=== PATIENT | female | born 1950 | race Caucasian/White ===

== ENCOUNTER 2024-08-14 12:41 | Emergency (ER) | payer MEDICARE, SELFPAY ==
[2024-08-14 12:46] VITALS: BP 110/51; PULSE 83; RESP 16; TEMP 36.1; O2SAT 98; BMI 27.4
--- NOTE | 2024-08-14 12:46 | ED_ITS ---
HPI - General Adult General Chief complaint: Psychiatric Symptoms Stated complaint: crisis Time Seen by Provider: 08/14/24 13:12 Source: patient and old records reviewed Mode of arrival: ambulatory Limitations: no limitations History of Present Illness ED Provider: ZENAIDA DÍAZ narrative: 73 yo female with PMH of CAD, DM, HLD, hypothyroidism here with c/o severe depression x 2 weeks waking up at night cannot calm herself down and has been panicking. She tried to see her new PCP and they would not prescribe anything. She notes she has no SI/HI but she needs a short med bridge to help her as she feels she is having a nervous breakdown. She states her friend 2 weeks ago and she is severely grieving her. No medical complaints or concerns. MD complaint: depression Onset (ago): week(s) (2) Severity: severe Relieving factors: none Exacerbating factors: other Associated symptoms: denies other symptoms Treatments prior to arrival: none Related Data Previous Rx's ?Medication ?Instructions ?Recorded lorazepam 0.5 mg tablet (Ativan) 0.5 mg PO BEDTIME PRN anxiety #7 08/14/24 tabs Allergies Allergy/AdvReac Type Severity Reaction Status Date / Time erythromycin base Allergy Unknown Verified 08/14/24 12:56 ketorolac [From Toradol] Allergy Unknown Verified 08/14/24 12:56 Penicillins [PCN] Allergy Rash Verified 08/14/24 12:50 sulfamethoxazole Allergy Unknown Verified 08/14/24 12:56 [From Bactrim] trimethoprim [From Bactrim] Allergy Unknown Verified 08/14/24 12:56 Review of Systems 2 Review of Systems: Constitutional : No Fever, No Chills ENT/Mouth : No Ear Pain, No Nasal Congestion, No sore throat Eyes: No Eye Pain, No Swelling, No Redness Cardiovascular : No Chest Pain, No SOB Respiratory : No Cough, No Sputum, No Dyspnea Gastrointestinal : No Nausea, No Vomiting, No Diarrhea, No Hematochezia, No Melena Genitourinary : No Dysuria, No Urinary Frequency, No Hematuria Musculoskeletal : No Myalgias Skin : No Skin Lesions, No rash Neuro : No Weakness, No Numbness, No Paresthesias, No Dizziness, No Headache Psych : positive Anxiety, positive Depression, no SI/HI All other systems reviewed and are negative [facility] Past Medical History Attestation statement: The following information was validated with the patient. Source: old records reviewed Medical History (Updated 08/14/24 @ 15:33 by Dionne Corado DO) Hypothyroidism CAD (coronary artery disease) Diabetes HLD (hyperlipidemia) Social History Social History (Updated 08/14/24 @ 13:47 by Dionne Corado DO) Patient Tobacco Use Status: Never used Tobacco Advance Directives: No Advance Directives Information Provided: Yes Physical Exam ED Vital Signs: Vital Signs - 24 hr 08/14/24 12:46 08/14/24 16:15 Temperature 96.9 F 96.9 F Pulse Rate 83 83 Respiratory Rate 16 16 Blood Pressure 110/51 L 110/51 L Pulse Oximetry 98 98 Oxygen Delivery Method Room Air Room Air BMI result Body Mass Index 27.4 Appearance: Alert. Oriented X3. No acute distress. Tearful Eyes: Pupils equal, round and reactive to light. ENT: Pharynx normal. Neck: Normal inspection. Neck supple. CVS: Normal heart rate and rhythm. Pulses normal. Respiratory: No respiratory distress. Breath sounds normal. Abdomen: Soft and nontender. Skin: Skin warm and dry. Normal skin color. Normal skin turgor. Extremities: No lower extremity edema. No calf ttp Neuro: Oriented X 3. No motor deficit. No sensory deficit. CN2-12 intact Course Course Course Narrative: RME, this is a rapid medical exam performed by Humphrey Ware please refer to primary provider for complete H&P- 73 year old female presents for evaluation of depression. She reports that she has been compliant with her medications. She denies suicidal ideation. Plan for medical clearance and care team evaluation Medical Decision Making Medical Decision Making [facility] Narrative: 73 yo female with PMH of CAD, DM, HLD, hypothyroidism here with c/o depression due to loss of friend at this time will obtain basic labs and refer to CARE team Differential Diagnosis Differential Diagnoses: The differential diagnosis associated with the presentation includes grief reaction, depression Admission/Observation Consideration of admission/observation: Escalation of care including admission/observation considered physician observation pending CARE team observation ended cleared by CARE team will start on short course ativan as I do not feel like abilify or remeron with her current antidepressants can be safely monitored, she can follow up with her PCP/provider Consult Healthcare Provider Management of the patient was discussed with: Behavioral Health Provider Lab Data [facility] Lab Attestation statement: I reviewed the patient's lab results. 08/14/24 14:30 08/14/24 14:30 Labs: Lab Results 08/14/24 Range/Units 14:30 WBC 7.4 (4.8-10.8) X10*3/uL RBC 3.81 L (4.20-5.50) X10*6/uL Hgb 10.7 L (12.0-16.0) g/dl Hct 33.5 L (37.0-47.0) % MCV 87.9 (80.0-98.0) fL MCH 28.1 (27.0-33.0) pg MCHC 31.9 (31.0-35.0) g/dl RDW 14.2 (11.0-16.0) % Plt Count 317 (160-400) X10*3/uL MPV 8.0 L (9.4-12.3) fL Immature Gran % (Auto) 0.4 (0.0-0.4) % Neut % (Auto) 71.4 (45-73) % Lymph % (Auto) 19.4 L (20-40) % [place] % (Auto) 8.1 (2-11) % Eos % (Auto) 0.3 (0-4) % Baso % (Auto) 0.4 (0-2) % Lymph # (Auto) 1.4 (1.2-4.9) X10*3/uL [place] # (Auto) 0.6 (0.1-1.2) X10*3/uL Eos # (Auto) 0.0 (0.0-0.4) X10*3/uL Baso # (Auto) 0.0 (0.0-0.2) X10*3/uL Abs Immat Gran (auto) 0.03 (0.00-0.03) X10*3/uL Absolute Neuts (auto) 5.3 (2.0-8.3) x10*3/uL Absolute Nucleated RBC 0.000 (0.0-0.012) X10*3/uL Nucleated RBC % (auto) 0.0 (0.0-0.2) /100WBC Sodium 140 (135-145) mmol/L Potassium 4.4 (3.3-5.1) mmol/L Chloride 106 (96-108) mmol/L Carbon Dioxide 25 (22-29) mmol/L Anion Gap 13 (12-20) BUN 25 H (9-16) mg/dL Creatinine 1.24 (0.5-1.4) mg/dL Estim Creat Clear Calc 38.2 Estimated GFR 42 Random Glucose 175 H (60-115) mg/dL Calcium 9.2 (8.4-10.2) mg/dL Total Bilirubin 0.2 (0.0-1.0) mg/dL AST 23 (5-31) U/L ALT 13 (0-31) U/L Alkaline Phosphatase 82 (39-117) U/L Total Protein 7.5 (6.5-8.0) g/dL Albumin 4.0 (3.5-5.0) g/dL Salicylates < 5.0 L (15-30) mg/dL Acetaminophen < 3 (<30) mcg/mL Ethyl Alcohol < 10 mg/dL External Record Review External record reviewed: Outpatient record Prescription Management I considered prescription management with: Other Discharge Plan Discharge Clinical Impression: Acute anxiety, Grief reaction Patient Disposition: Home, Self-Care Instructions: Mirtazapine (By mouth), Grief and Loss (ED), Anxiety (ED) Additional Instructions: you are on lamotrigine and venlafaxine - you are requesting a short term medication to help your symptoms but generally grief and loss cannot be treated by medications. We can start you on a medication you can take as needed at night for sleep but again this will not fix your overall feelings about this situation. Please follow up with your doctor Monitor for any confusion or worsening symptoms You were seen in our Emergency Department today for treatment of a behavioral health issue. It is important after your visit that you follow up with either your behavioral health provider or a primary care doctor within 7 days.? If you have trouble finding a therapist you can reach out to [address] [phone] The National Suicide and Crisis Lifeline can be reached 7 days a week 24 hours a day.? Call 988 to speak with someone.? Return for any worsening symptoms or concerns such as thoughts of self harm or harm to others. Please call 911 if you feel your mental health is worsening.? Prescriptions: New lorazepam [Ativan] 0.5 mg tablet 0.5 mg PO BEDTIME PRN (Reason: anxiety) Qty: 7 0RF Interventions: Gilbert-Suicide Risk Severity Scale Last Done: 08/14/24 16:17 ED Discharge Assessment Last Done: 08/14/24 16:15 Discharge Date/Time: 08/14/24 16:18 Print Language: Wolof
--- OUTSIDE RECORDS SUMMARY | 2024-08-14 14:19 | XMS_ITS | Clinical Summary ---
Author Organization [facility], Address [address] [place] [address] [place] [address] Phone Care Team Providers Care Bottle Selector Name Role Phone Liana Mcguire NP Primary Care Provider Allergies Active Allergy Reactions Criticality Noted Date Comments Erythromycin Other (see comments) 07/09/2017 Ketorolac Swelling 08/17/2005 tongue swelling Ketorolac Tromethamine Other (see comments) 06/08/2019 Nifedipine Other (see comments) 10/20/2012 Decrease platelet count Nitrofurantoin 10/01/2022 Omeprazole 10/01/2022 Penicillin G Rash,Swelling Low 08/17/2005 Penicillins Other (see comments) 06/08/2019 Sulfa Antibiotics Other (see comments) 07/09/2017 Sulfamethoxazole-Trimetho prim Other (see comments) 06/08/2019 Medications aspirin 81 MG chewable tablet Chew 1 tablet 1 (one) time each day Active cholecalcifero l (VITAMIN D-3) 1.25 MG (84032 UT) capsule Comments: Filled Date: May 05 2019 12:00AM Patient Notes: TAKE ONE CAPSULE BY MOUTH ONCE A WEEK Duration: 91 9 Active Continuous Blood Gluc Certified Juvenile Probation Officer (DEXCOM G6 CAPACITOR TESTER) device Comments: Filled Date: May 18 2019 12:00AM Patient Notes: USE DIRECTED Duration: 90 9 Active albuterol (5 MG/ML) 0.5% nebulizer solution 0.5 ml Active atorvastatin (LIPITOR) 80 MG tablet Comments: Filled Date: Jun 02 2019 12:00AM Patient Notes: TAKE ONE TABLET BY MOUTH EVERY DAY Duration: 30 9 Active carvedilol (COREG) 12.5 MG tablet weekly Active clopidogrel (PLAVIX) 75 MG tablet Comments: Filled Date: Apr 15 2019 12:00AM Patient Notes: TAKE ONE TABLET BY MOUTH EVERY DAY Duration: 90 9 Active insulin aspart (NovoLOG FLEXPEN) 100 UNIT/ML injection Comments: Filled Date: Apr 02 2019 12:00AM Patient Notes: INJECT UP TO 20 UNITS SUBCUTANEOUSLY THREE TIMES A DAY Duration: 30 8 Active insulin detemir (LEVEMIR FLEXTOUCH) 100 UNIT/ML injection Comments: Filled Date: May 15 2019 12:00AM Patient Notes: INJECT 30 UNITS SUBCUTANEOUSLY EVERY MORNING AND INJECT 40 UNITS EVERY EVENING Duration: 42 9 Active lisinopril (PRINIVIL,ZEST RIL) 5 MG tablet Comments: Filled Date: May 05 2019 12:00AM Patient Notes: TAKE ONE TABLET BY MOUTH EVERY DAY Duration: 90 9 Active LORazepam (ATIVAN) 1 MG tablet Comments: Filled Date: Mar 25 2019 12:00AM Patient Notes: TAKE 1 TABLET BY MOUTH THREE TIMES A DAY Duration: 30 9 Active venlafaxine (EFFEXOR) 37.5 MG tablet TAKE ONE CAPSULE(S) ONCE A DAY WITH FOOD Active Continuous Blood Gluc Sensor (Dexcom G6 Sensor) misc USE UTD CHANGE Q 10 DAYS 0 Active ezetimibe (ZETIA) 10 MG tablet 0 Active lamoTRIgine (LaMICtal) 100 MG tablet 0 Active levothyroxine (SYNTHROID, LEVOTHROID) 150 MCG tablet 0 Active Continuous Blood Gluc Transmit (Dexcom G6 Transmitter) misc 0 Active Active Problems Problem Noted Date Diagnosed Date 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 Chronic kidney disease stage 2 06/08/2019 Hyperlipidemia 06/20/2017 Overview (06/08/2019): Last Assessment & Plan: Continues on high intensity statin therapy LDL above goal on most recent labs, goal is <70 most recent result was 91, if value remains above goal then addition of Zetia may be warranted Acquired hypothyroidism 06/15/2017 Overview (06/08/2019): Last Assessment & Plan: Clinically euthyroid but reports occ palpitations Most recent TFTs reviewed and TSH is slightly suppressed, may benefit from modest lowering of L-thyroxine therapy, I took the liberty of contacting the patient to adjust this Immunizations Name Administration Dates Next Due Influenza Split High Dose Preservative Free IM 0 03/16/2019 Td, Unspecified 08/17/2005 Zoster 03/16/2019,01/02/2019 Social History Tobacco Use Types Packs/Day Years Used Date Smoking Tobacco: Former Tobacco Cessation:Counseling Given: No Alcohol Use Standard Drinks/Week Comments No 0 (1 standard drink = 0.6 oz pur e alcohol) Comments Unknown Sex and Gender Information Value Date Recorded Sex Assigned at Not on file Legal Sex Female 10:34 AM EST Gender Identity Not on file Sexual Orientation Not on file Last Filed Vital Signs Vital Sign Reading Time Taken Comments Blood Pressure 134/68 10/07/2023 2:08 PM EDT Pulse - - Temperature - - Respiratory Rate - - Oxygen Saturation - - Inhaled Oxygen Concentration - - Weight 89.8 kg (198 lb) 06/08/2019 7:36 PM EST Height - - Body Mass Index - - Plan of Treatment Upcoming Encounters Date Type Department Care Team (Late st Contact Info) Description 10/05/2024 2:00 PM EDT Office Visit [facility], [address] [place] [address] Kamran Kaplan MD [address] [place] [address] Health Maintenance Due Date Last Done Comments Breast Cancer Screening 1948 Colorectal Cancer Screening: Annual FOBT 1997 Colorectal Cancer Screening: Colonoscopy 1997 Colorectal Cancer Screening: Sigmoidoscopy 1997 Pneumococcal Vaccine: 65+ Years (3 of 3 - PCV) 04/14/2016 04/14/2015, 03/24/2014, 04/06/2008 Diabetes: Ophthalmology Exam 06/08/2019 Diabetes: Pedal Pulse Checked 06/08/2019 Diabetes: Sensory Foot Exam 06/08/2019 Diabetes: Visual Foot Exam 06/08/2019 Influenza Vaccine (#1) 2024 9, 04/22/2018, 05/12/2013 Diabetes: Hemoglobin A1C 06/08/2024 024, 08/23/2023, 07/09/2022, Additional history exists Hepatitis B Vaccine Aged Out No longe r eligible based on patient's age to complete this topic Insurance MEDICARE [facility] Care Teams Bottle Selector Relationship Specialty Start Date End Date Liana Mcguire NP [facility] [place] [facility] [address] [place] [address] PCP - General Nurse Practitioner 06/02/19
--- OUTSIDE RECORDS SUMMARY | 2024-08-14 14:19 | XMS_ITS | Clinical Summary ---
Author Organization [facility] [address] [facility] Address [address] [place] [address] Phone Care Team Providers Care [employer] Name Role Phone Mode Farr MD Primary Care Provider [phone] Allergies Active Allergy Reactions Criticality Noted Date Comments Erythromycin 08/17/2005 Other Reaction(s): Rash/Dermatitis Ketorolac Swelling 08/17/2005 tongue swelling Nifedipine 10/20/2012 Decrease platelet count Penicillin G Potassium Swelling 08/17/2005 Other Reaction(s): Rash/Dermatitis Sulfa (Sulfonamide Antibiotics) High 08/17/2005 Other Reaction(s): Rash/Dermatitis Medications ALBUTEROL INHL by Does not apply route as needed. Active aspirin 81 mg EC tablet Take 81 mg by mouth daily. Active atorvastatin (LIPITOR) 80 mg tablet Take 80 mg by mouth daily. Active carvediloL (COREG) 12.5 mg tablet Take 1 Tab by mouth 2 times daily (with meals). 05/07/2019 Active cholecalciferol (VITAMIN D-3) 25 mcg (1,000 unit) capsule Take 1 Cap by mouth daily. 03/01/2016 Active cloNIDine (XJRAKQMU-LTR-5 ) 0.1 mg/[address] 1 Patch onto the skin every 7 days. 05/07/2019 Active esomeprazole (NexIUM) [address] capsule Take 40 mg by mouth daily. Active insulin lispro (HumaLOG U-100 Insulin) 100 unit/mL injection 10-30 units @ mealtime Active insulin glargine (LANTUS) 100 unit/mL injection Inject into the skin at bedtime. 60 ux in am and 70 ux in pm Active lamoTRIgine (LaMICtal) 25 mg tablet Take 25 mg by mouth daily. Take one tablet daily Active levothyroxine (SYNTHROID, LEVOTHROID) 200 mcg tablet Take 200 mcg by mouth daily. 1 tablet daily 01/15/2012 Active LORazepam (ATIVAN) 1 mg tablet Take 1 mg by mouth 2 times daily. Active venlafaxine (EFFEXOR) 100 mg tablet Take 200 mg by mouth daily. Active Active Problems Problem Noted Date Diagnosed Date Idiopathic thrombocythemia 02/11/2013 Calculus of kidney 08/29/2010 CKD (chronic kidney disease) stage 2, GFR 60-89 ml/min 08/29/2010 Hypertensive kidney disease with chronic kidney disease, stage 1-4 or unspecified chronic kidney disease 08/29/2010 Hyperlipidemia 08/29/2010 Obesity 08/29/2010 Proteinuria 08/29/2010 Type 2 diabetes mellitus wit h renal manifestations, controlled 08/29/2010 Encounters Date Type Department Care Team Description 06/12/2024 Telephone Gastroenterology - [address] [facility] [address] [place] [address] Toni Salcido MA from Last 3 Months Immunizations Name Administration Dates Next Due PPD Test 02/27/2011,02/05/2011 Td Tetanus diptheria (Tdvax) 7yo and older 08/17 Medical History Medical History Date Comments Idiopathic thrombocythemia (CMS/HCC) 02/11/2013 DX:Idiopathic thrombocythemia (HCC) Family History Medical History Relation Name Comments Breast cancer Mother dx 40 Relation Name Status Comments Mother dx 40 Social History Tobacco Use Types Packs/Day Years Used Date Smoking Tobacco: Former Alcohol Use Standard Drinks/Week Comments Not Asked 0 (1 standard drink = 0.6 oz pur e alcohol) Comments Unknown Sex and Gender Information Value Date Recorded Sex Assigned at Not on file Legal Sex Female 2:24 AM EST Gender Identity Not on file Sexual Orientation Not on file Obstetrics History Plan of Treatment Upcoming Encounters Date Type Department Care Team ([facility] st Contact Info) Description 12/14/2024 7:30 AM EDT Appointment Radiology Department - [address] [address] Health Maintenance Due Date Last Done Comments Diabetes: Annual GFR (Glomerular Filtration Rate) 1948 COVID-19 Vaccine (#1) 1953 Diabetes: Annual Foot Exam 1958 Diabetes: Annual Retina Eye Exam 1958 Pneumococcal Vaccine: 50+ Years (1 of 2 - PCV) 1967 Zoster Vaccines (1 of 2) 1967 DTaP,Tdap,and Td Vaccines (2 - Td or Tdap) 08/17/2015 08/17/2005 Cholesterol Screening (Lipid Panel) 06/10/2022 Colorectal Cancer Screening: Colonoscopy 06/10/2022 Depression Screening 06/10/2022 Falls Risk Assessment 06/10/2022 Medicare Annual Wellness Visit 06/10/2022 Social Influencers of Health Screening 06/10/2022 Diabetes: Annual Urine Albumin-Creatinine Ratio (uACR) 06/15/2022 05/06/2019 Diabetes: Blood Sugar Control Test (HGBA1C) 06/15/2022 RSV Immunization Patients 60+ Years Old (1 - 1-dose 75+ series) 2023 Influenza Vaccine (#1) 2024 Osteoporosis Screening (Bone Density Screening) 11/09/2031 11/08/2021, 03/19/2017 Hepatitis C Screening Completed 02/20/2007 Breast Cancer Screening Discontinued 11/28/19, 11/28/2023, 11/16/2022, Additional history exists HIB Vaccines Aged Out No longer eligi ble based on patient's age to complete this topic HPV Vaccines Aged Out No longer eligi ble based on patient's age to complete this topic Hepatitis A Vaccines Aged Out No long er eligible based on patient's age to complete this topic Hepatitis B Vaccines Aged Out No long er eligible based on patient's age to complete this topic IPV Vaccines Aged Out No longer eligi ble based on patient's age to complete this topic MMR Vaccines Aged Out No longer eligi ble based on patient's age to complete this topic Meningococcal ACWY Vaccine Aged Out N o longer eligible based on patient's age to complete this topic Meningococcal B Vacine Aged Out No lo nger eligible based on patient's age to complete this topic RSV Immunization Patients Under 20 months Aged Out No longer eligible based on patient's age to complete this topic Varicella Vaccines Aged Out No longer eligible based on patient's age to complete this topic Procedures Procedure Name Priority Date/Time Associated Diagnosis Comments SCREENING MAMMOGRAPHY BI 2-VIEW BREAST INC CAD Routine 11/28/2023 8:02 AM EDT Encounter for screening mammogram for malignant neoplasm of breast DXA BONE DENSITY STUDY 1+ SITS AXIAL SKEL Routine 11/08/2021 4:04 PM EDT Encounter for screening for osteoporosis HM URINE ALBUMIN CREATININE RATIO Routine 05/06/2019 HEPATITIS C SCREENING Routine 02/20/2007 from Last 3 Months or Most Recently Relevant to Health Maintenance Results * SCREENING MAMMOGRAPHY BI 2-VIEW BREAST INC CAD (11/28/2023 8:02 AM EDT) Anatomical Region Laterality Modality Radiographic Rahel ging 11/16/2022 7:54 AM EDT Narrative 11/28/2023 12:44 PM EDT This is a summary report. The complete report is available in the patient's medical record. If you cannot access the medical record, please contact the sending organization for a detailed fax or copy. Study: SCREENING MAMMOGRAPHY BI 2-VIEW BREAST INC CAD Technique: Bilateral full-field digital screening mammography is obtained and read in conjunction with computer aided detection. ??Tomosynthesis as well as 2D C-View imaging were obtained. Comparison: Comparison made to multiple prior, most recent November 16, 2022, and most remote July 22, 2014. Breast composition: The breast tissue is heterogeneously dense, which may obscure small masses. Right breast: Large erica-like calcifications are not significantly changed from multiple prior studies as far back as 2014. ??No suspicious masses, suspicious calcifications or other abnormalities are seen. Left breast: Pacemaker battery limits local evaluation. ??Large erica-like calcifications are not significantly changed from multiple prior studies as far back as 2014. ??No suspicious masses, suspicious calcifications or other abnormalities are seen. IMPRESSION: Impression: Bilateral breasts: Benign, no specific mammographic evidence of malignancy. ??Normal interval follow-up is recommended in 12 months. BI-RADS: Category 2: Benign Procedure Note Lindsey Rogel MD - 02/17/2024 This is a summary report. The complete report is available in thepatient's medical record. If you cannot access the medical record, pleasecontact the sending organization for a detailed fax or copy. Study: SCREENING MAMMOGRAPHY BI 2-VIEW BREAST INC CAD Technique: Bilateral full-field digital screening mammography is obtainedand read in conjunction with computer aided detection. Tomosynthesis aswell as 2D C-View imaging were obtained. Comparison: Comparison made to multiple prior, most recent November 16, 2022,and most remote July 22, 2014. Breast composition: The breast tissue is heterogeneously dense, which mayobscure small masses. Right breast: Large erica-like calcifications are not significantly changedfrom multiple prior studies as far back as 2014. No suspicious masses,suspicious calcifications or other abnormalities are seen. Left breast: Pacemaker battery limits local evaluation. Large erica- likecalcifications are not significantly changed from multiple prior studiesas far back as 2014. No suspicious masses, suspicious calcifications orother abnormalities are seen. IMPRESSION: Impression: Bilateral breasts: Benign, no specific mammographic evidence ofmalignancy. Normal interval follow-up is recommended in 12 months. BI-RADS: Category 2: Benign Liaan Mcguire NP IMG XR PROCEDURES Final Resu lt * DXA BONE DENSITY STUDY 1+ SITS AXIAL SKEL (11/08/2021 4:04 PM EDT) Anatomical Region Laterality Modality Bone Densitometr y 10/19/2020 3:09 PM EDT Narrative 11/08/2021 5:48 PM EDT BONE DENSITY ? Lumbar Spine T-score is -0.3 ?? (SD relative to 20-29 y/o adult) Z-score is +2.0 ??(SD relative to age matched peers) This is normal by criteria defined by the WHO. Left Hip T-score is -1.6 Z-score is +0.4 This is normal by criteria defined by the WHO. Comparison exam(s): significant decrease in bone density of ??hip and lumbar spine when compared to most recent bone density examination ?? Confidence level is +/-95%. Impression: Based on the World Health Organization criteria, Cristiana Goyal should be classified as having osteopenia. This patient has a 16% risk of major osteoporotic fracture and a 2.8% risk of hip fracture over the next 10 years. (World Health Organization Fracture Risk Assessment) [facility] Department of Internal Medicine recommends using National Osteoporosis Foundation (NOF) guidelines in treatment decisions related to osteoporosis. NOF guidelines suggest considering treatment for postmenopausal women and men aged 50 or older presenting with the following: History of hip or vertebral fracture. T-score less than or equal to -2.5 (DXA) at the femoral neck, total hip, or spine, after appropriate evaluation to exclude secondary causes. Low bone mass (T-score between -1.0 and -2.5 at the femoral neck or spine) AND a 10-year probability of a hip fracture greater than or equal to 3% OR a 10-year probability of a major osteoporosis-related fracture greater than or equal to 20% based on the [place]-adapted WHO algorithm Please note that all treatment decisions require clinical judgment and consideration of individual patient factors, including patient preferences, co-morbidities, previous drug use, risk factors not captured in the FRAX model (e.g., frailty, falls, vitamin D deficiency, increased bone turnover, interval significant decline in bone density) and possible under- or over-estimation of fracture risk by FRAX. Procedure Note Astrid Chen MD - 06/19/2022 BONE DENSITY Lumbar Spine T-score is -0.3 (SD relative to 20-29 y/o adult) Z-score is +2.0 (SD relative to age matched peers) This is normal by criteria defined by the WHO. Left Hip T-score is -1.6 Z-score is +0.4 This is normal by criteria defined by the WHO. Comparison exam(s): significant decrease in bone density of hip andlumbar spine when compared to most recent bone density examination Confidence level is +/-95%. Impression: Based on the World Health Organization criteria, Cristiana Goyal should beclassified as having osteopenia. This patient has a 16% risk of majorosteoporotic fracture and a 2.8% risk of hip fracture over the next 10years. (World Health Organization Fracture Risk Assessment) [facility] Department of Internal Medicine recommendsusing National Osteoporosis Foundation (NOF) guidelines in treatmentdecisions related to osteoporosis. NOF guidelines suggest consideringtreatment for postmenopausal women and men aged 50 or older presentingwith the following: History of hip or vertebral fracture. T-score less than or equal to -2.5 (DXA) at the femoral neck, total hip,or spine, after appropriate evaluation to exclude secondary causes. Low bone mass (T-score between -1.0 and -2.5 at the femoral neck or spine)AND a 10-year probability of a hip fracture greater than or equal to 3% ORa 10-year probability of a major osteoporosis-related fracture greaterthan or equal to 20% based on the [place]-adapted WHO algorithm Please note that all treatment decisions require clinical judgment andconsideration of individual patient factors, including patientpreferences, co-morbidities, previous drug use, risk factors not capturedin the FRAX model (e.g., frailty, falls, vitamin D deficiency, increasedbone turnover, interval significant decline in bone density) and possibleunder- or over-estimation of fracture risk by FRAX. Liana Mcguire NP IMG DXA PROCEDURES Final Res ult * Urine Albumin Creatinine Ratio (05/06/2019) [facility] Urine Albumin Creatinine Ratio Abstracted Historical Provider HEALTH MAINTENANCE Final Result * Hepatitis C Screening (02/20/2007) [facility] Hepatitis C Screening Abstracted Historical Provider HEALTH MAINTENANCE Final Result from Last 3 Months or Most Recently Relevant to Health Maintenance Insurance MEDICARE [facility] Care Teams [employer] Relationship Specialty Start Date End Date Mode Farr MD [address] [place] [address] PCP - General Internal Medicine 09/03/12
--- OUTSIDE RECORDS SUMMARY | 2024-08-14 14:19 | XMS_ITS | Continuity of Care Document ---
Author Organization [facility] Adult Address [address] [place] [address]- Support Name Relationship Address Phone OWSHERINAK, JAYMIE Personal Relationship Unknown Unav ailable OWSIAK, JAYMIE Personal Relationship Unknown Unav ailable OWSIAK, JAYMIE Personal Relationship Unknown Unav ailable OWSIAK, JAYMIE spouse Unknown Unavailable OWSIAK, JAYMIE Personal Relationship Unknown Unav ailable OWSIAK, JAYMIE Personal Relationship Unknown Unav ailable OWSIAK, JAYMIE spouse Unknown Unavailable OWSIAK, JAYMIE Personal Relationship Unknown Unav ailable OWSIAK, JAYMIE Personal Relationship Unknown Unav ailable OWSIAK, JAYMIE Personal Relationship Unknown Unav ailable OWSIAK, JAYMIE Personal Relationship Unknown Unav ailable OWSIAK, JAYMIE Personal Relationship Unknown Unav ailable OWSIAK, JAYMIE spouse Unknown Unavailable OWSIAK, JAYMIE spouse Unknown Unavailable OWSIAK, JAYMIE Personal Relationship Unknown Unav ailable OWSIAK, JAYMIE Personal Relationship Unknown Unav ailable OWSIAK, JAYMIE Personal Relationship Unknown Unav ailable OWSIAK, JAYMIE Personal Relationship Unknown Unav ailable OWSIAK, JAYMIE Personal Relationship Unknown Unav ailable OWSIAK, JAYMIE Personal Relationship Unknown Unav ailable OWSIAK, JAYMIE Personal Relationship Unknown Unav ailable OWSIAK, JAYMIE Personal Relationship Unknown Unav ailable OWSIAK, JAYMIE Personal Relationship Unknown Unav ailable OWSIAK, JAYMIE spouse Unknown Unavailable OWSIAK, JAYMIE Personal Relationship Unknown Unav ailable OWSIAK, JAYMIE Personal Relationship Unknown Unav ailable OWSIAK SR, JAYMIE Personal Relationship Unknown U navailable OWSIAK, JAYMIE Personal Relationship Unknown Unav ailable OWSIAK, JAYMIE Personal Relationship Unknown Unav ailable OWSIAK, JAYMIE spouse Unknown Unavailable OWSIAK, JAYMIE Personal Relationship Unknown Unav ailable OWSIAK, JAYMIE Personal Relationship Unknown Unav ailable OWSIAK, JAYMIE spouse Unknown Unavailable OWSIAK, JAYMIE Personal Relationship Unknown Unav ailable OWSIAK, JAYMIE Personal Relationship Unknown Unav ailable OWSIAK, MAGDALENA child Unknown Unavailable OWSIAK, JAYMIE spouse Unknown Unavailable OWSIAK, JAYMIE Personal Relationship Unknown Unav ailable OWSIAK, JAYMIE Personal Relationship Unknown Unav ailable OWSIAK, FILIBERTO Personal Relationship Unknown Unav ailable OWSIAK, JAYMIE spouse Unknown Unavailable OWSIAK, JAYMIE spouse Unknown Unavailable OWSIAK, JAYMIE spouse Unknown Unavailable OWSIAK, JAYMIE E Personal Relationship Unknown Un available OWSIAK, JAYMIE Personal Relationship Unknown Unav ailable OWSIAK, JAYMIE Personal Relationship Unknown Unav ailable OWSIAK, JAYMIE Personal Relationship Unknown Unav ailable OWSIAK, JAYMIE spouse Unknown Unavailable OWSIAK, JAYMIE Personal Relationship Unknown Unav ailable OWSIAK, JAYMIE Personal Relationship Unknown Unav ailable OWSIAK, JAYMIE Personal Relationship Unknown Unav ailable OWSIAK, JAYMIE Personal Relationship Unknown Unav ailable OWSIAK, JAYMIE Personal Relationship Unknown Unav ailable OWSIAK, JAYMIE Personal Relationship Unknown Unav ailable OWSIAK, JAYMIE Personal Relationship Unknown Unav ailable OWSIAK, JAYMIE spouse Unknown Unavailable OWSIAK, JAYMIE Personal Relationship Unknown Unav ailable OWSIAK, JAYMIE Personal Relationship Unknown Unav ailable OWSIAK, JAYMIE Personal Relationship Unknown Unav ailable OWSIAK, JAYMIE Personal Relationship Unknown Unav ailable OWSIAK, JAYMIE Personal Relationship Unknown Unav ailable OWSIAK, JAYMIE Personal Relationship Unknown Unav ailable OWSIAK, JAYMIE Personal Relationship Unknown Unav ailable OWSIAK, JAYMIE Personal Relationship Unknown Unav ailable OWSIAK, JAYMIE Personal Relationship Unknown Unav ailable OWSIAK, JAYMIE spouse Unknown Unavailable OWSIAK, JAYMIE E Personal Relationship Unknown Un available OWSIAK, JAYMIE Personal Relationship Unknown Unav ailable OWSIAK, JAYMIE Personal Relationship Unknown Unav ailable OWSIAK, JAYMIE Personal Relationship Unknown Unav ailable OWSIAK, JAYMIE spouse Unknown Unavailable OWSIAK, JAYMIE Personal Relationship Unknown Unav ailable OWSIAK, JAYMIE Personal Relationship Unknown Unav ailable OWSIAK, JAYMIE Personal Relationship Unknown Unav ailable OWSIAK, JAYMIE spouse Unknown Unavailable FILIBERTO GOYAL L Personal Relationship Unknown Un available OWSIAK, FILIBERTO Personal Relationship Unknown Unav ailable OWSIAK, JAYMIE Personal Relationship Unknown Unav ailable Care Team Providers Care Early Childhood Special Educator Name Role Phone Pepper MANAGER BUSINESS BANKING, Vani Jeana Primary Care Physician Encounter [facility] ACCT R [id number] Date(s): 07/01/24 - 07/31/24 [facility] Adult [address] [place], [place] [address] Encounter Type: Triage Allergies, Adverse Reactions, Alerts Substance Criticality Severity Reaction Reaction Severity Status erythromycin rash Active NIFEdipine thrombocytopenia Ac tive Bactrim SOB rash Active penicillin anaphylaxis/rash Ac tive sulfa drugs anaphylaxis Active Toradol rash Active Theramycin rash Active Contrast Dye 1 Resol lore 1Patient states that she has tolerated Immunizations Given and Recorded Vaccine Date Status Refusal Reason influenza virus vaccine, inactivated 04/06/24 Amrit rded influenza virus vaccine, inactivated 04/11/23 Amrit rded influenza virus vaccine, inactivated 04/09/22 Amrit rded influenza virus vaccine, inactivated 03/27/21 Amrit rded influenza virus vaccine, inactivated 03/16/19 Amrit rded influenza virus vaccine, inactivated 1 04/22/18 Gi jennifer influenza virus vaccine, inactivated 2 08/08/16 Gi jennifer influenza virus vaccine, inactivated 3 04/14/15 Re corded influenza virus vaccine, inactivated 4 03/24/14 Re corded influenza virus vaccine, inactivated 05/12/13 Give n influenza virus vaccine, inactivated 03/31/09 Give n [id number] 12y+ bivalent booster vax 04/09/22 Recorded SARS-CoV-2 (COVID-19) mRNA BNT-162b2 vac 03/29/21 Recorded SARS-CoV-2 (COVID-19) mRNA BNT-162b2 vac 09/21/20 Recorded SARS-CoV-2 (COVID-19) mRNA BNT-162b2 vac 08/24/20 Recorded SARS-CoV-2 (COVID-19) mRNA BNT-162b2 vac 6 08/03/20 Recorded zoster vaccine, inactivated 03/16/19 Recorded zoster vaccine, inactivated 01/02/19 Recorded Pneumococcal Vaccine (oldterm) 7 04/14/15 Recorded pneumococcal 23-valent vaccine 8 03/24/14 Recorded pneumococcal 23-valent vaccine 04/06/08 Given tetanus/diphtheria/pertussis, acel(Tdap) 02/27/11 Given tetanus-diphtheria toxoids (Td) 08/06/08 Given tetanus-diphtheria toxoids (Td) 08/17/05 Recorded influ virus vac, H1N1, inactive(oldterm) 9 07/02/08 Given 1Result Comment: [04/23/2018] andministered at [facility] 2Admin Note: stop [employer] 3Location History: [facility] 4Location History: [facility] 5Result Comment: received at [facility] 6Result Comment: received at [facility] 7Location History: [facility] 8Location History: [facility] 9Admin Note: Given at work Medications albuterol 90 mcg/inh inhalation aerosol Inhalation, 2 times a day, PRN Wheezing/Shortness of Breath, 0 Refills, Maintenance Start Date: 05/04/19 Status: Ordered Repeat number: 1 allopurinol 100 mg oral tablet 1, tablet, By Mouth, Daily, # 90 tablet, Refills 1, Maintenance, 01/09/24 2:12:00 PM EDT, Route to Pharmacy Electronically, [facility], 159, cm, 12/30/23 13:35:00 EDT, Height, 69, kg, 12/16/23 12:29:00 EDT, Dry Weight Start Date: 01/09/24 Status: Ordered Quantity: 90.0 Unit: tablet Repeat number: 1 Aspir-Low 81 mg oral enteric coated tablet 1 tablet = 81 mg, By Mouth, Daily, # 30 tablet, 11 Refills, Maintenance, 08/30/15 4:19:37 PM EST, EC Tablet, [facility] Start Date: 08/30/15 Stop Date: 08/24/16 Status: Ordered Quantity: 30.0 Unit: tablet Repeat number: 12 atorvastatin 80 mg oral tablet 1 tablet, By Mouth, Daily, # 30 tablet, 11 Refills, Maintenance, 03/23/24 7:57:00 AM EDT, [facility], 159, cm, 02/05/24 8:19:00 EDT, Height, 69, kg, 12/16/23 12:29:00 EDT, Dry Weight Start Date: 03/23/24 Status: Ordered Quantity: 30.0 Unit: tablet Repeat number: 1 carvedilol 12.5 mg oral tablet 1, tablet, By Mouth, 2 times a day, # 180 tablet, Refills 1, Maintenance, 07/02/24 10:06:00 AM EST, Route to Pharmacy Electronically, [facility], 159, cm, 06/22/24 8:15:00 EST, Height, 69, kg, 12/16/23 12:29:00 EDT, Dry Weight Start Date: 07/02/24 Status: Ordered Quantity: 180.0 Unit: tablet Repeat number: 1 clopidogrel 75 mg oral tablet 1, tablet, By Mouth, Daily, # 90 tablet, Refills 1, Maintenance, 03/23/24 2:18:00 PM EDT, Route to Pharmacy Electronically, [facility], 159, cm, 02/05/24 8:19:00 EDT, Height, 69, kg,12/16/23 12:29:00 EDT, Dry Weight Start Date: 03/23/24 Status: Ordered Quantity: 90.0 Unit: tablet Repeat number: 1 ezetimibe 10 mg oral tablet 1 tablet, By Mouth, Daily, # 90 tablet, 3 Refills, Maintenance, 02/27/24 3:38:00 PM EDT, [facility], 159, cm, 02/05/24 8:19:00 EDT, Height, 69, kg, 12/16/23 12:29:00 EDT, Dry Weight Start Date: 02/27/24 Status: Ordered Quantity: 90.0 Unit: tablet Repeat number: 1 lamotrigine 100 mg oral tablet 1, tablet, By Mouth, 3 times a day, # 90 tablet, Refills 5, Tot. Refills 5, Maintenance, 07/21/24 9:26:00 PM EST, Route to Pharmacy Electronically, [facility], 159, cm, 06/22/24 8:15:00 EST, Height, 69, kg, 12/16/23 12:29:00 EDT, Dry Weight Start Date: 07/21/24 Status: Ordered Quantity: 90.0 Unit: tablet Repeat number: 6 Levemir Inj Subcutaneous Infusion, 2 times a day, s/s 30units up to 35 units, 0 Refills, Maintenance, 12/04/19 5:38:00 PM EDT Start Date: 12/04/19 Status: Ordered Repeat number: 1 levothyroxine 125 mcg (0.125 mg) oral tablet 1 tablet, By Mouth, Daily, # 90 tablet, 1 Refills, Maintenance, 05/15/24 4:12:00 PM EST, [facility], 159, cm, 05/05/24 15:38:00 EST, Height, 69, kg, 12/16/23 12:29:00 EDT, Dry Weight Start Date: 05/15/24 Status: Ordered Quantity: 90.0 Unit: tablet Repeat number: 1 predniSONE 10 mg oral tablet 0 Refills, Maintenance, 02/05/24 7:52:00 AM EDT, Partial fill upon patient request if the prescription is for a schedule II opioid drug. Start Date: 02/05/24 Status: Ordered Repeat number: 1 sacubitril-valsartan 97 mg-103 mg oral tablet 1 tablet, By Mouth, 2 times a day, # 180 tablet, 3 Refills, Maintenance, 02/04/24 11:02:00 AM EDT, Tablet, [facility], Partial fill upon patient request if the prescription is for a schedule II opioid drug., 1 tablet By Mouth 2 times a day, 159, cm, 02/04/24 10:50:00 EDT, Height, 69, kg, 12/16/23 12:29:00 EDT, Dry Weight Start Date: 02/04/24 Status: Ordered Quantity: 180.0 Unit: tablet Repeat number: 4 venlafaxine 225 mg oral tablet, extended release 1 tablet, By Mouth, Daily, # 90 tablet, 1 Refills, Maintenance, 02/04/24 2:50:00 PM EDT, [facility], 159, cm, 02/04/24 10:50:00 EDT, Height, 69, kg, 12/16/23 12:29:00 EDT, Dry Weight Start Date: 02/04/24 Status: Ordered Quantity: 90.0 Unit: tablet Repeat number: 1 Ventolin HFA 108 mcg/inh inhalation aerosol with adapter 1 puffs, Inhalation, 4 times a day, PRN for wheezing, refills by PCP, # 1 each, 0 Refills, Maintenance, 11/15/23 11:13:00 AM EDT, Aerosol, [facility], 157.5, cm, 11/15/23 8:57:00 EDT, Height, 78.7, kg, 05/29/22 6:48:00 EST, Dry Weight Start Date: 11/15/23 Stop Date: 12/15/23 Status: Ordered Quantity: 1.0 Unit: each Repeat number: 1 Problem List Condition Confirmation Course Effective Dates Status H ealth Status Informant Adjustment Disorder with Mixed Anxiety and Depressed Mood Confirmed Active ANXIETY STATE, UNSPECIFIED Confirmed Active Automatic implantable cardioverter-defibrill ator in situ Confirmed Active Benign hypertensive heart and kidney disease Confirmed Active 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 Pacemaker Confirmed Active Stage 3b chronic kidney disease (CKD) Confirmed Active Coronary arteriosclerosis 1, 2 Confirmed Active DEPRESSIVE DISORDER, NOT ELSEWHERE CLASSIFIED Confirmed Active 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 Confirmed Active ESOPHAGEAL REFLUX Confirmed Active Ischemic cardiomyopathy Confirmed Active Gout Confirmed Active Hypertension Confirmed Active Depression with anxiety Confirmed Active Nephritis and Nephropathy, Not Specified as Acute or Chronic, in Diseases Classified Elsewhere Confirmed Active Neuralgia, postherpetic Confirmed Active Obese class I Confirmed Active Obesity Confirmed Active OTHER AND UNSPECIFIED HYPERLIPIDEMIA Confirmed Active Post traumatic stress disorder (PTSD) Confirmed Active Major depression, recurrent, chronic Confirmed Active Renal hypertension Confirmed Active Retinopathy, diabetic NOS Confirmed Active UNSPECIFIED HYPOTHYROIDISM Confirmed Active UTI symptoms Confirmed Active 1ICD 08/2013 2DES x 2 Social History Social History Type Response Smoking Status Former smoker, quit more than 30 days ago; Tobacco user in household: No; Other: pt states she quit smoking at age 30; entered on: 08/05/19 Sex Sex Representation Female (finding) Patient Care team information Care Team Personnel Name: Vernell Lester RN Position: [facility] RN Supv Member Role: Primary Care Nurse Name: Fernanda Elias RN Position: S RN Member Role: Primary Care Nurse Name: Erika Waite RN Position: S RN Member Role: Primary Care Nurse Name: Vani Pabon NP Position: [facility] PCO Associate Professional Member Role: PCP Address: [address] [place] [address], [place] [address]- [place] Tele[employer]: Name: Sanjeev Miller RN Position: S RN Member Role: Primary Care Nurse Name: Anton SPENCER, Hina Campos Position: S RN Member Role: Primary Care Nurse Care Team Related Persons Name: MAGDALENA GOYAL Name: JAYMIE GOYAL Insurance Providers Guarantor name: FILIBERTO JYOTSNA Health Plan Information #: 1 Payer: MEDICARE PART B OUTPT Member Number: NA Policy Number: NA Group Number: NA Health Plan Information #: 2 Payer: BLUE MEDICARE SUPPL Member Number: NA Policy Number: NA Group Number: NA
--- OUTSIDE RECORDS SUMMARY | 2024-08-14 14:19 | XMS_ITS | Continuity of Care Document ---
Author Organization [facility] Adult Address [address] [place] [address]- Support Name Relationship Address Phone OWSHERINAK, JAYMIE [...] OWSIAK, JAYMIE Personal Relationship Unknown Unav ailable MARSIAK, JAYMIE spouse Unknown Unavailable FILIBERTO GOYAL L Personal Relationship Unknown Un available OWCHRIS, FILIBERTO Personal Relationship Unknown Unav ailable OWSIAK, JAYMIE Personal Relationship Unknown Unav ailable Care Team Providers Care Geothermal System Installer Name Role Phone Pepper STEPHEN, Vani Jeana Primary Care Physician [phone] [id number]28[facility] - 07/28/24 [facility] Adult [address] [place], [place] [address] Encounter Type: Triage Allergies, Adverse Reactions, Alerts [...] influenza virus vaccine, inactivated 03/31/09 Give n [id number] 12y+ bivalent booster vax 04/09/22 Recorded SARS-CoV-2 [...] 07/02/08 Given 1Result Comment: [04/23/2018] andministered at [facility] 2Admin Note: [facility] 3Location History: [facility] 4Location History: [employer] [facility] 5Result Comment: received at [facility] 6Result Comment: received at [facility] 7Location History: [facility] 8Location History: [facility] 9Admin Note: Given at work Medications albuterol 90 mcg/inh inhalation aerosol Inhalation, 2 times a day, PRN Wheezing/Shortness of Breath, 0 Refills, Maintenance Start Date: 05/04/19 Status: Ordered Repeat number: 1 allopurinol 100 mg oral tablet 1, tablet, By Mouth, Daily, # 90 tablet, Refills 1, Maintenance, 01/09/24 2:12:00 PM EDT, Route to Pharmacy Electronically, [facility], 159, cm, 12/30/23 13:35:00 EDT, Height, 69, kg, 12/16/23 12:29:00 EDT, Dry Weight Start Date: 01/09/24 Status: Ordered Quantity: 90.0 Unit: tablet Repeat number: 1 Aspir-Low 81 mg oral enteric coated tablet 1 tablet = 81 mg, By Mouth, Daily, # 30 tablet, 11 Refills, Maintenance, 08/30/15 4:19:37 PM EST, EC Tablet, [facility] Start Date: 08/30/15 Stop Date: 08/24/16 Status: Ordered Quantity: 30.0 Unit: tablet Repeat number: 12 atorvastatin 80 mg oral tablet 1 tablet, By Mouth, Daily, # 30 tablet, 11 Refills, Maintenance, 03/23/24 7:57:00 AM EDT, [facility], 159, cm, 02/05/24 8:19:00 EDT, Height, 69, kg, 12/16/23 12:29:00 EDT, Dry Weight Start Date: 03/23/24 Status: Ordered Quantity: 30.0 Unit: tablet Repeat number: 1 carvedilol 12.5 mg oral tablet 1, tablet, By Mouth, 2 times a day, # 180 tablet, Refills 1, Maintenance, 07/02/24 10:06:00 AM EST, Route to Pharmacy Electronically, [facility], 159, cm, 06/22/24 8:15:00 EST, Height, 69, kg, 12/16/23 12:29:00 EDT, Dry Weight Start Date: 07/02/24 Status: Ordered Quantity: 180.0 Unit: tablet Repeat number: 1 clopidogrel 75 mg oral tablet 1, tablet, By Mouth, Daily, # 90 tablet, Refills 1, Maintenance, 03/23/24 2:18:00 PM EDT, Route to Pharmacy Electronically, [facility], 159, cm, 02/05/24 8:19:00 EDT, Height, 69, kg,12/16/23 12:29:00 EDT, Dry Weight Start Date: 03/23/24 Status: Ordered Quantity: 90.0 Unit: tablet Repeat number: 1 ezetimibe 10 mg oral tablet 1 tablet, By Mouth, Daily, # 90 tablet, 3 Refills, Maintenance, 02/27/24 3:38:00 PM EDT, [facility], 159, cm, 02/05/24 8:19:00 EDT, Height, 69, kg, 12/16/23 12:29:00 EDT, Dry Weight Start Date: 02/27/24 Status: Ordered Quantity: 90.0 Unit: tablet Repeat number: 1 lamotrigine 100 mg oral tablet 1, tablet, By Mouth, 3 times a day, # 90 tablet, Refills 5, Tot. Refills 5, Maintenance, 07/21/24 9:26:00 PM EST, Route to Pharmacy Electronically, [facility], 159, cm, 06/22/24 8:15:00 EST, [...] Team Personnel Name: Vernell Lester RN Position: [facility] RN Supv Member Role: Primary Care Nurse Name: Fernanda Elias RN Position: S RN Member Role: Primary Care Nurse Name: Erika Waite RN Position: S RN Member Role: Primary Care Nurse Name: Vani Pabon NP Position: [facility] PCO Associate Professional Member Role: PCP Address: [address] [place] [address] [place] [address]- [place] Tele[employer]: Name: Sanjeev Miller RN Position: [...]
--- OUTSIDE RECORDS SUMMARY | 2024-08-14 14:19 | XMS_ITS | Continuity of Care Document ---
Author Organization [facility] Adult Address [address] [place] [address]- Support Name Relationship Address Phone OWSHERINAK, JAYMIE [...] GOYAL L Personal Relationship Unknown Un available OWSHERINAK, FILIBERTO Personal Relationship Unknown Unav ailable OWSIAK, JAYMIE Personal Relationship Unknown Unav ailable Care Team Providers Care Transit Authority Police Officer Name Role Phone Pepper STEPHEN, Vani Jeana Primary Care Physician Encounter [facility] ACCT R [id number] Date(s): 07/03/24 - 08/02/24 [facility] Adult [address] [place], [place] [address] Encounter Type: Triage Allergies, Adverse Reactions, [...] influenza virus vaccine, inactivated 03/31/09 Give n [id number] 12y+ bivalent booster vax 04/09/22 Recorded SARS-CoV-2 [...] 07/02/08 Given 1Result Comment: [04/23/2018] andministered at [facility] 2Admin Note: stop [employer] 3Location History: [facility] 4Location History: [facility] 5Result Comment: received at [facility] 6Result Comment: received at [facility] 7Location History: [facility] 8Location History: [facility] [employer] 9Admin Note: Given at work Medications albuterol 90 mcg/inh inhalation aerosol Inhalation, 2 times a day, PRN Wheezing/Shortness of Breath, 0 Refills, Maintenance Start Date: 05/04/19 Status: Ordered Repeat number: 1 allopurinol 100 mg oral tablet 1, tablet, By Mouth, Daily, # 90 tablet, Refills 1, Maintenance, 01/09/24 2:12:00 PM EDT, Route to Pharmacy Electronically, [facility], 159, cm, 12/30/23 13:35:00 EDT, Height, 69, kg, 12/16/23 12:29:00 EDT, Dry Weight Start Date: 01/09/24 Status: Ordered Quantity: 90.0 Unit: tablet Repeat number: 1 Aspir-Low 81 mg oral enteric coated tablet 1 tablet = 81 mg, By Mouth, Daily, # 30 tablet, 11 Refills, Maintenance, 08/30/15 4:19:37 PM EST, EC Tablet, [facility] Start Date: 08/30/15 Stop Date: 08/24/16 Status: Ordered Quantity: 30.0 Unit: tablet Repeat number: 12 atorvastatin 80 mg oral tablet 1 tablet, By Mouth, Daily, # 30 tablet, 11 Refills, Maintenance, 03/23/24 7:57:00 AM EDT, [facility], 159, cm, 02/05/24 8:19:00 EDT, Height, 69, kg, 12/16/23 12:29:00 EDT, Dry Weight Start Date: 03/23/24 Status: Ordered Quantity: 30.0 Unit: tablet Repeat number: 1 carvedilol 12.5 mg oral tablet 1, tablet, By Mouth, 2 times a day, # 180 tablet, Refills 1, Maintenance, 07/02/24 10:06:00 AM EST, Route to Pharmacy Electronically, [facility], 159, cm, 06/22/24 8:15:00 EST, Height, 69, kg, 12/16/23 12:29:00 EDT, Dry Weight Start Date: 07/02/24 Status: Ordered Quantity: 180.0 Unit: tablet Repeat number: 1 clopidogrel 75 mg oral tablet 1, tablet, By Mouth, Daily, # 90 tablet, Refills 1, Maintenance, 03/23/24 2:18:00 PM EDT, Route to Pharmacy Electronically, [facility], 159, cm, 02/05/24 8:19:00 EDT, Height, 69, kg,12/16/23 12:29:00 EDT, Dry Weight Start Date: 03/23/24 Status: Ordered Quantity: 90.0 Unit: tablet Repeat number: 1 ezetimibe 10 mg oral tablet 1 tablet, By Mouth, Daily, # 90 tablet, 3 Refills, Maintenance, 02/27/24 3:38:00 PM EDT, [facility], 159, cm, 02/05/24 8:19:00 EDT, Height, 69, kg, 12/16/23 12:29:00 EDT, Dry Weight Start Date: 02/27/24 Status: Ordered Quantity: 90.0 Unit: tablet Repeat number: 1 lamotrigine 100 mg oral tablet 1, tablet, By Mouth, 3 times a day, # 90 tablet, Refills 5, Tot. Refills 5, Maintenance, 07/21/24 9:26:00 PM EST, Route to Pharmacy Electronically, [facility], 159, cm, 06/22/24 8:15:00 EST, [...] Team Personnel Name: Vernell Lester RN Position: [facility] RN Supv Member Role: Primary Care Nurse Name: Fernanda Elias RN Position: S RN Member Role: Primary Care Nurse Name: Erika Waite RN Position: S RN Member Role: Primary Care Nurse Name: Vani Pabon NP Position: [facility] PCO Associate Professional Member Role: PCP Address: [address] [place] [address], [place] [address]- [place] Tele[employer]: Name: Sanjeev Miller RN Position: [...]
--- OUTSIDE RECORDS SUMMARY | 2024-08-14 14:19 | XMS_ITS | Encounter Summary ---
Author Organization [facility], Address [address] [address] Phone Care Team Providers Care Womens Health Nurse Practitioner Name Role Phone Liana Mcguire NP Primary Care Provider [phone] Encounter Details Date Type Department Care Team (Late st Contact Info) Description 09/29/2021 Documentation Only [facility] [address] [place] [address] Kamran Kaplan MD [address] [facility] [place] [address] Social History Tobacco Use Types Packs/Day Years Used Date Smoking Tobacco: Former Alcohol Use Standard Drinks/Week Comments No 0 (1 standard drink = 0.6 oz pur e alcohol) Comments Unknown Sex and Gender Information Value Date Recorded Sex Assigned at Not on file Legal Sex Female 10:34 AM EST Gender Identity Not on file Sexual Orientation Not on file documented as of this encounter Plan of Treatment Upcoming Encounters Date Type Department Care Team (Late st Contact Info) Description 10/05/2024 2:00 PM EDT Office Visit [facility] [address] [place] [address] Kamran Kaplan MD [address] [facility] [place] [address] documented as of this encounter Visit Diagnoses Not on filedocumented in this encounter Care Teams Womens Health Nurse Practitioner Relationship Specialty Start Date End Date Liana Mcguire NP [address] PCP - General Nurse Practitioner 06/02/19 documented as of this encounter
--- OUTSIDE RECORDS SUMMARY | 2024-08-14 14:19 | XMS_ITS | Continuity of Care Document ---
Author Organization [facility] Address [address] [place] [address]- Support Name Relationship Address Phone OWSHERINAK, JAYMIE [...] ailable OWSIAK, JAYMIE spouse Unknown Unavailable OWSIAK, JAYMEI Personal Relationship Unknown Unav ailable OWSIAK, JAYMIE [...] Unknown Unav ailable Care Team Providers Care Dog Handler Name Role Phone Pepper STEPHEN, Vani Jeana Primary Care Physician Encounter [facility] [place] [facility] R [id number] Date(s): 06/22/24 - 07/22/24 [facility] [address] [place], [place] [address] Attending Physician: Camelia Velásquez Admitting Physician: Camelia Velásquez Referring Physician: Camelia Velásquez Encounter Type: Triage Allergies, Adverse Reactions, Alerts Substance Criticality Severity Reaction Reaction Severity Status erythromycin rash Active NIFEdipine thrombocytopenia Ac tive sulfa drugs anaphylaxis Active Theramycin rash Active Bactrim SOB rash Active penicillin anaphylaxis/rash Ac tive Toradol rash Active Contrast Dye 1 Resol lore [...] influenza virus vaccine, inactivated 03/31/09 Give n [id number] 12y+ bivalent booster vax 04/09/22 Recorded SARS-CoV-2 (COVID-19) mRNA BNT-162b2 vac 03/29/21 Recorded SARS-CoV-2 (COVID-19) mRNA BNT-162b2 vac 5 09/21/20 Recorded SARS-CoV-2 (COVID-19) mRNA BNT-162b2 vac [...] 07/02/08 Given 1Result Comment: [04/23/2018] andministered at [employer] 2Admin Note: stop [employer] 3Location History: [facility] 4Location History: [facility] 5Result Comment: received at [facility] 6Result Comment: received at [facility] 7Location History: [facility] 8Location History: [facility] [employer] 9Admin Note: Given at work Medications albuterol 90 mcg/inh inhalation aerosol Inhalation, 2 times a day, PRN Wheezing/Shortness of Breath, 0 Refills, Maintenance Start Date: 05/04/19 Status: Ordered Repeat number: 1 allopurinol 100 mg oral tablet 1, tablet, By Mouth, Daily, # 90 tablet, Refills 1, Maintenance, 01/09/24 2:12:00 PM EDT, Route to Pharmacy Electronically, [facility], 159, cm, 12/30/23 13:35:00 EDT, Height, 69, kg, 12/16/23 12:29:00 EDT, Dry Weight Start Date: 01/09/24 Status: Ordered Quantity: 90.0 Unit: tablet Repeat number: 1 Aspir-Low 81 mg oral enteric coated tablet 1 tablet = 81 mg, By Mouth, Daily, # 30 tablet, 11 Refills, Maintenance, 08/30/15 4:19:37 PM EST, EC Tablet, [facility] Start Date: 08/30/15 Stop Date: 08/24/16 Status: Ordered Quantity: 30.0 Unit: tablet Repeat number: 12 atorvastatin 80 mg oral tablet 1 tablet, By Mouth, Daily, # 30 tablet, 11 Refills, Maintenance, 03/23/24 7:57:00 AM EDT, [facility], 159, cm, 02/05/24 8:19:00 EDT, Height, 69, kg, 12/16/23 12:29:00 EDT, Dry Weight Start Date: 03/23/24 Status: Ordered Quantity: 30.0 Unit: tablet Repeat number: 1 carvedilol 12.5 mg oral tablet 1, tablet, By Mouth, 2 times a day, # 180 tablet, Refills 1, Maintenance, 07/02/24 10:06:00 AM EST, Route to Pharmacy Electronically, [facility], 159, cm, 06/22/24 8:15:00 EST, Height, 69, kg, 12/16/23 12:29:00 EDT, Dry Weight Start Date: 07/02/24 Status: Ordered Quantity: 180.0 Unit: tablet Repeat number: 1 clopidogrel 75 mg oral tablet 1, tablet, By Mouth, Daily, # 90 tablet, Refills 1, Maintenance, 03/23/24 2:18:00 PM EDT, Route to Pharmacy Electronically, [facility], 159, cm, 02/05/24 8:19:00 EDT, Height, 69, kg,12/16/23 12:29:00 EDT, Dry Weight Start Date: 03/23/24 Status: Ordered Quantity: 90.0 Unit: tablet Repeat number: 1 ezetimibe 10 mg oral tablet 1 tablet, By Mouth, Daily, # 90 tablet, 3 Refills, Maintenance, 02/27/24 3:38:00 PM EDT, [facility], 159, cm, 02/05/24 8:19:00 EDT, Height, 69, kg, 12/16/23 12:29:00 EDT, Dry Weight Start Date: 02/27/24 Status: Ordered Quantity: 90.0 Unit: tablet Repeat number: 1 lamotrigine 100 mg oral tablet 1, tablet, By Mouth, 3 times a day, # 90 tablet, Refills 5, Tot. Refills 5, Maintenance, 07/21/24 9:26:00 PM EST, Route to Pharmacy Electronically, [facility], 159, cm, 06/22/24 8:15:00 EST, [...] Confirmed Active 1ICD 08/2013 2DES x 2 Procedures Procedure Date Related Diagnosis Body Site Status Colonoscopy, flexible, proxi mal to splenic flexure; diagnostic, with or without collection of specimen(s) by brushing or washing, with or without colon decompression (separate procedure) 1 09/21/14 Completed 1personal history of colon polyps. fair prep. repeat 5 years. Social History Social History Type Response Smoking Status Former smoker, quit more than 30 days ago; Tobacco user in household: No; Other: pt states she quit smoking at age 30; entered on: 08/05/19 Sex Sex Representation Female (finding) EKG study * Event Display: EKG Authored Date: * Event Display: EKG Authored Date: * Event Display: EKG Authored Date: Laboratory * Event Display: Non BH Lab Results Authored Date: * Event Display: Non BH Lab Results Authored Date: * Event Display: Laboratory Result Scanned Authored Date: Cardiology Consult note * Event Display: Consult Note Cardiology Authored Date: Cardiology * Event Display: Device Check Office Visit Authored Date: * Event Display: Device Check Office Visit Authored Date: Radiology * Event Display: CT Scan Ankle/Foot, Non- BH Authored Date: * Event Display: Bone Density Authored Date: * Event Display: Bone Density, Non-BH Authored Date: * Majo Adorno: PERFORM Event Display: Radiology Results Scanned Authored Date: * Lissette Pearson: PERFORM Event Display: Radiology Results Scanned Authored Date: MG Breast Views * Event Display: MM Mammogram Authored Date: * Event Display: MM Mammogram Authored Date: * Event Display: MM Mammogram Authored Date: * Event Display: MM Mammogram Authored Date: * Event Display: MM Mammogram, Non- BH Authored Date: * Event Display: MM Mammogram, Non- BH Authored Date: Patient Care team information Care Team Personnel Name: Vernell Lester RN Position: [facility] RN Supv Member Role: Primary Care Nurse Name: Fernanda Elias RN Position: S RN Member Role: Primary Care Nurse Name: Erika Waite RN Position: S RN Member Role: Primary Care Nurse Name: Vani Pabon NP Position: [facility] PCO Associate Professional Member Role: PCP Address: [address] [place] [id number]- Telecom: Name: Sanjeev Miller RN Position: S RN Member Role: Primary Care Nurse Name: Anton SPENCER, Hina Campos Position: [facility] RN Member Role: Primary Care Nurse Care [...]
--- OUTSIDE RECORDS SUMMARY | 2024-08-14 14:19 | XMS_ITS | Continuity of Care Document ---
Author Organization [facility] Address [address] [place] [phone]- Support Name Relationship Address Phone JYOTSNA, JAYMIE Personal Relationship Unknown Unav ailable OWSIAK, [...] OWSIAK, JAYMIE Personal Relationship Unknown Unav ailable JYOTSNA, JAYMIE Personal Relationship Unknown Unav ailable JYOTSNA, JAYMIE spouse Unknown Unavailable FILIBERTO GOYAL L Personal Relationship Unknown Un available FILIBERTO GOYAL Personal Relationship Unknown Unav ailable MARSIAK, JAYMIE Personal Relationship Unknown Unav ailable Care Team Providers Care Human Services Care Specialist Name Role Phone Vani Pabon NP Primary Care Physician [phone] [id number] Date(s): 07/06/24 - 07/27/[address] Encounter Diagnosis Other intervertebral disc degeneration, lumbar region with discogenic back pain only(Final) - Discharge Disposition: A-D/C Home Attending Physician: Vani Pabon NP Admitting Physician: Vani Pabon NP Referring Physician: Vani Pabon NP Encounter Type: Disch Recurring OP Allergies, Adverse Reactions, Alerts Substance Criticality Severity Reaction Reaction Severity Status erythromycin rash Active NIFEdipine thrombocytopenia Ac tive penicillin anaphylaxis/rash Ac tive sulfa drugs anaphylaxis Active Toradol rash Active Theramycin rash Active Bactrim SOB rash Active Contrast Dye 1 Resol lore [...] influenza virus vaccine, inactivated 03/31/09 Give n [id number] 12y+ bivalent booster vax 04/09/22 Recorded SARS-CoV-2 [...] 07/02/08 Given 1Result Comment: [04/23/2018] andministered at [employer] 2Admin Note: stop [employer] 3Location History: [facility] 4Location History: [employer] 5Result Comment: received at [facility] 6Result Comment: received at [facility] 7Location History: [facility] 8Location History: [facility] 9Admin Note: Given at work Medications albuterol 90 mcg/inh inhalation aerosol Inhalation, 2 times a day, PRN Wheezing/Shortness of Breath, 0 Refills, Maintenance Start Date: 05/04/19 Status: Ordered Repeat number: 1 allopurinol 100 mg oral tablet 1, tablet, By Mouth, Daily, # 90 tablet, Refills 1, Maintenance, 01/09/24 2:12:00 PM EDT, Route to Pharmacy Electronically, [facility], 159, cm, 12/30/23 13:35:00 EDT, Height, 69, kg, 12/16/23 12:29:00 EDT, Dry Weight Start Date: 01/09/24 Status: Ordered Quantity: 90.0 Unit: tablet Repeat number: 1 Aspir-Low 81 mg oral enteric coated tablet 1 tablet = 81 mg, By Mouth, Daily, # 30 tablet, 11 Refills, Maintenance, 08/30/15 4:19:37 PM EST, EC Tablet, [facility] Start Date: 3/1/16 Stop Date: 08/24/16 Status: Ordered Quantity: 30.0 Unit: tablet Repeat number: 12 atorvastatin 80 mg oral tablet 1 tablet, By Mouth, Daily, # 30 tablet, 11 Refills, Maintenance, 03/23/24 7:57:00 AM EDT, [facility], 159, cm, 02/05/24 8:19:00 EDT, Height, 69, kg, 12/16/23 12:29:00 EDT, Dry Weight Start Date: 03/23/24 Status: Ordered Quantity: 30.0 Unit: tablet Repeat number: 1 carvedilol 12.5 mg oral tablet 1, tablet, By Mouth, 2 times a day, # 180 tablet, Refills 1, Maintenance, 07/02/24 10:06:00 AM EST, Route to Pharmacy Electronically, [facility], 159, cm, 06/22/24 8:15:00 EST, Height, 69, kg, 12/16/23 12:29:00 EDT, Dry Weight Start Date: 07/02/24 Status: Ordered Quantity: 180.0 Unit: tablet Repeat number: 1 clopidogrel 75 mg oral tablet 1, tablet, By Mouth, Daily, # 90 tablet, Refills 1, Maintenance, 03/23/24 2:18:00 PM EDT, Route to Pharmacy Electronically, [facility], 159, cm, 02/05/24 8:19:00 EDT, Height, 69, kg,12/16/23 12:29:00 EDT, Dry Weight Start Date: 03/23/24 Status: Ordered Quantity: 90.0 Unit: tablet Repeat number: 1 ezetimibe 10 mg oral tablet 1 tablet, By Mouth, Daily, # 90 tablet, 3 Refills, Maintenance, 02/27/24 3:38:00 PM EDT, [facility], 159, cm, 02/05/24 8:19:00 EDT, Height, 69, kg, 12/16/23 12:29:00 EDT, Dry Weight Start Date: 02/27/24 Status: Ordered Quantity: 90.0 Unit: tablet Repeat number: 1 lamotrigine 100 mg oral tablet 1, tablet, By Mouth, 3 times a day, # 90 tablet, Refills 5, Tot. Refills 5, Maintenance, 07/21/24 9:26:00 PM EST, Route to Pharmacy Electronically, [facility], 159, cm, 06/22/24 8:15:00 EST, [...] 1 Refills, Maintenance, 05/15/24 4:12:00 PM EST, [facility], 159, cm, 05/05/24 15:38:00 EST, [...] 02/04/24 11:02:00 AM EDT, Tablet, [facility], Partial fill upon patient request [...] Team Personnel Name: Vernell Lester RN Position: [facility] Supv Member Role: Primary Care Nurse Name: Fernanda Elias RN Position: [facility] RN Member Role: Primary Care Nurse Name: Erika Waite RN Position: S RN Member Role: Primary Care Nurse Name: Vani Pabon NP Position: [facility] PCO Associate Professional Member Role: PCP Address: [address] [place] [phone]- Telecom: Name: Sanjeev Miller RN Position: S RN Member Role: Primary Care Nurse Name: Hina Walton RN Position: S RN Member Role: Primary Care Nurse Care Team Related Persons Name: MAGDALENA GOYAL Name: JAYMIE GOYAL Insurance Providers Guarantor name: FILIBERTO GOYAL Health Plan Information #: 2 Payer: [employer] SUPPL Member Number: [id number] Policy Number: NA Group Number: [id number] Health Plan Information #: 1 Payer: MEDICARE PART B OUTPT Member Number: [id number] Policy Number: NA Group Number: NA
--- OUTSIDE RECORDS SUMMARY | 2024-08-14 14:19 | XMS_ITS | Encounter Summary ---
Author Organization [facility], Address [address] [address] Phone Care Team Providers Care Dental Therapist Name Role Phone Liana Mcguire NP Primary Care Provider [phone] Encounter Details Date Type Department Care Team (Late st Contact Info) Description 11/28/2021 Documentation Only [facility] [address] [place] [address] Kamran Kaplan MD [address] [facility] [place] [address] Social History Tobacco Use Types [...] Visit [facility] [address] [place] [address] Kamran Kaplan MD [address] [facility] [place] [address] documented as of this encounter Visit Diagnoses Not on filedocumented in this encounter Care Teams Dental Therapist Relationship Specialty Start Date End Date Liana Mcguire NP [address] PCP - General Nurse Practitioner 06/02/19 documented as of this encounter
[2024-08-14 14:34] LABS: MANUAL DIFF FLAG NO
[2024-08-14 14:36] LABS: Basophils Percent Auto 0.4 % (0-2); Eosinophils Percent Auto 0.3 % (0-4); Hematocrit 33.5 % (37.0-47.0); Hemoglobin 10.7 g/dl (12.0-16.0); Imm Gran Abs Auto 0.03 X10*3/uL (0.00-0.03); Imm Gran Pct Auto 0.4 % (0.0-0.4); Lymphocytes Absolute Auto 1.4 X10*3/uL (1.2-4.9); Lymphocytes Percent Auto 19.4 % (20-40); Mean Corpuscular HGB Conc 31.9 g/dl (31.0-35.0); Mean Corpuscular Hemoglobin 28.1 pg (27.0-33.0); Mean Corpuscular Volume 87.9 fL (80.0-98.0); Monocytes Absolute Auto 0.6 X10*3/uL (0.1-1.2); Monocytes Percent Auto 8.1 % (2-11); Neutrophils Absolute Auto 5.3 x10*3/uL (2.0-8.3); Neutrophils Percent Auto 71.4 % (45-73); Platelet Count 317 X10*3/uL (160-400); Red Blood Count 3.81 X10*6/uL (4.20-5.50); Red Cell Distribution Width 14.2 % (11.0-16.0); White Blood Count 7.4 X10*3/uL (4.8-10.8)
[2024-08-14 14:58] LABS: Acetaminophen LAB < 3 mcg/mL (<30); Alanine Aminotransferase 13 U/L (0-31); Alkaline Phosphatase 82 U/L (39-117); Anion Gap 13 (12-20); Aspartate Amino Transferase 23 U/L (5-31); Bilirubin Total 0.2 mg/dL (0.0-1.0); Blood Urea Nitrogen 25 mg/dL (9-16); Calcium 9.2 mg/dL (8.4-10.2); Carbon Dioxide 25 mmol/L (22-29); Chloride 106 mmol/L (96-108); Creatinine Clr Calc Pharmacy 38.2; Estimated Glomerular Filt Rate 42; Ethanol < 10 mg/dL; Glucose Random 175 mg/dL (60-115); Potassium 4.4 mmol/L (3.3-5.1); Salicylate < 5.0 mg/dL (15-30); Sodium 140 mmol/L (135-145); Total Protein 7.5 g/dL (6.5-8.0)
[2024-08-14 16:15] VITALS: BP 110/51; PULSE 83; RESP 16; TEMP 36.1; O2SAT 98
== END 2024-08-14 16:18 | disposition home or self-care (01) ==
PROVIDERS: Physician Assistant; Emergency Provider Emergency Medicine
DX: F41.1 Generalized anxiety disorder (principal); F43.22 Adjustment disorder with anxiety; F43.89 Other reactions to severe stress; Z79.899 Other long term (current) drug therapy; Z51.81 Encounter for therapeutic drug level monitoring
CPT/HCPCS: 36415; 80053; 80143; 80179; 80307; 85025; 99283; 99284; S9485